=== PATIENT | male | born 1985 | race African-American/Black ===

== ENCOUNTER 2019-09-13 17:51 | Inpatient (IN) | payer OTHER ==
[2019-09-13 18:45] VITALS: BMI 25.2
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
[2019-09-13] MEDS ORDERED: MAGNESIUM CITRATE 300 ML BOTTLE PO PRN (20:28)
[2019-09-13] MEDS ORDERED: ONDANSETRON *ODT* 4 MG TABLET SL PRN (20:28)
[2019-09-13] MEDS ORDERED: ACETAMINOPHEN 325 MG TABLET (FP) PO PRN (20:28)
[2019-09-13] MEDS ORDERED: MAG HYDROX/AL HYDROX/SIMETH 30 ML UNIT-DOSE CUP PO PRN (20:28)
[2019-09-13] MEDS ORDERED: MENTHOL/PHENOL 1 EACH UD MM PRN (20:28)
[2019-09-13] MEDS ORDERED: BISMUTH SUBSALICYLATE 524 MG/30 ML UD PO PRN (20:28)
[2019-09-13] MEDS ORDERED: chlordiazePOXIDE HCL 25 MG CAPSULE PO ONE (20:36)
[2019-09-13] MEDS: THIAMINE HCL 100 MG TABLET (FP) PO SCH (21:28)
[2019-09-13] MEDS: MELATONIN 5 MG TABLETS PO PRN (21:28)
[2019-09-13] MEDS: chlordiazePOXIDE HCL 25 MG CAPSULE PO SCH (21:29)
[2019-09-14] MEDS: chlordiazePOXIDE HCL 25 MG CAPSULE PO SCH ×3 (06:37→21:37)
[2019-09-14] MEDS: PRENATAL VITAMINS W/ FOLIC ACID TABLET (FP) PO SCH (10:22)
[2019-09-14] MEDS: BACITRACIN 15 GM TUBE TOPICAL OINTMENT TP SCH (10:22)
[2019-09-14] MEDS: chlordiazePOXIDE HCL 10 MG CAPSULE PO PRN ×2 (10:24→15:18)
[2019-09-14] MEDS: METHOCARBAMOL 500 MG TABLET PO PRN (10:24)
[2019-09-14 10:36] LABS: HEMATOCRIT 42.2 % (35.4-49); HEMOGLOBIN 13.8 GM/dL (11.7-16.9); MCH 29.7 pg (25.7-33.7); MCHC 32.7 g/dl (32.0-35.9); MEAN CELL VOLUME 90.6 fl (80-96); MEAN PLT VOLUME 7.7 fl (7.5-11.1); PLATELET COUNT 297 K/MM3 (134-434); RBC 4.66 M/mm3 (4.00-5.60); RDW 15.8 % (11.9-15.9); WHITE BLOOD COUNT 3.9 K/mm3 (4.0-10.0)
--- NOTE | 2019-09-14 10:43 | EKG ---
Test Reason : Blood Pressure : / mmHG Vent. Rate : 068 BPM Atrial Rate : 068 BPM P-R Int : 172 ms QRS Dur : 086 ms QT Int : 430 ms P-R-T Axes : 071 057 037 degrees QTc Int : 457 ms SINUS RHYTHM WITH OCCASIONAL PREMATURE VENTRICULAR COMPLEXES NO PREVIOUS ECGS AVAILABLE Confirmed by ALEJANDRO MEI MD ([id number]) on 09/14/2019 10:43:26 AM Referred By: LENORA Confirmed By:ALEJANDRO MEI MD
[2019-09-14 10:48] LABS: ALBUMIN 3.5 g/dl (3.4-5.0); BILIRUBIN,TOTAL 0.8 mg/dL (0.2-1); BLOOD UREA NITROGEN 10.8 mg/dL (7-18); CALCIUM 9.1 mg/dL (8.5-10.1); CREATININE 1.1 mg/dL (0.55-1.3); POTASSIUM 3.9 mmol/L (3.5-5.1); TOT PROT 6.9 g/dl (6.4-8.2)
[2019-09-14] MEDS: IBUPROFEN 400 MG TABLET (FP) PO PRN ×2 (13:16→19:33)
--- NOTE | 2019-09-14 13:18 | PN ---
S CIWA - CIWA Score Nausea/Vomitin-Mild Nausea/No Vomiting Muscle Tremors: 3 Anxiety: 3 Agitation: 3 Paroxysmal Sweats: 3 Orientation: 0-Oriented Tacttile Disturbances: 0-None Auditory Disturbances: 0-None Visual Disturbances: 0-None Headache: 0-None Present CIWA-Ar Total Score: 13 S Progress Note (SOAP) Subjective: sweats shakes chills interrupted sleep nausea Objective: 09/14/19 13:17 Vital Signs Temperature 97.9 F 09/14/19 09:51 Pulse Rate 66 09/14/19 09:51 Respiratory Rate 18 09/14/19 09:51 Blood Pressure 119/76 09/14/19 09:51 O2 Sat by Pulse Oximetry (%) Laboratory Tests 09/14/19 09/14/19 08:00 08:00 WBC 3.9 L RBC 4.66 Hgb 13.8 Hct 42.2 MCV 90.6 MCH 29.7 MCHC 32.7 RDW 15.8 Plt Count 297 MPV 7.7 Sodium 141 Potassium 3.9 Chloride 104 Carbon Dioxide 29 Anion Gap 8 BUN 10.8 Creatinine 1.1 Est GFR (CKD-EPI)AfAm 101.69 Est GFR (CKD-EPI)NonAf 87.74 Random Glucose 86 Calcium 9.1 Total Bilirubin 0.8 AST 51 H ALT 64 H Alkaline Phosphatase 70 Total Protein 6.9 Albumin 3.5 aaox3 ambulating no acute distress labs noted Assessment: 09/14/19 13:17 withdrawals Plan: continue detox increase fluids
[2019-09-14] MEDS: hydrOXYzine PAMOATE 25 MG CAPSULE (FP) PO PRN (19:33)
[2019-09-14] MEDS: MELATONIN 5 MG TABLETS PO PRN (21:37)
[2019-09-14] MEDS: THIAMINE HCL 100 MG TABLET (FP) PO SCH (21:56)
[2019-09-15] MEDS ORDERED: chlordiazePOXIDE 5 MG CAPSULE PO SCH (05:00)
[2019-09-15] MEDS: METHOCARBAMOL 500 MG TABLET PO PRN ×3 (06:42→22:09)
[2019-09-15] MEDS: PRENATAL VITAMINS W/ FOLIC ACID TABLET (FP) PO SCH (10:30)
[2019-09-15] MEDS: chlordiazePOXIDE HCL 10 MG CAPSULE PO PRN (10:33)
[2019-09-15] MEDS: IBUPROFEN 400 MG TABLET (FP) PO PRN (10:34)
[2019-09-15] MEDS: BACITRACIN 15 GM TUBE TOPICAL OINTMENT TP SCH (10:57)
[2019-09-15] MEDS ORDERED: chlordiazePOXIDE HCL 10 MG CAPSULE PO PRN ×2 (11:31→11:32)
[2019-09-15] MEDS ORDERED: chlordiazePOXIDE HCL 10 MG CAPSULE PO ONE (11:39)
--- NOTE | 2019-09-15 11:45 | PN ---
S CIWA - CIWA Score Nausea/Vomitin Muscle Tremors: 4-Moderate,w/Arms Extend Anxiety: 5 Agitation: 5 Paroxysmal Sweats: 2 Orientation: 0-Oriented Tacttile Disturbances: 0-None Auditory Disturbances: 0-None Visual Disturbances: 0-None Headache: 2-Mild CIWA-Ar Total Score: 20 S Progress Note (SOAP) Subjective: Pt comes into detox very frequently- says he tries to stop but drinks about 1 gallon of alchol a day. his whole family drinks. O: high CIWA score alert and oriented Vital Signs - 24 hr 09/14/19 09/15/19 09/15/19 21:02 00:30 03:30 Temperature 99.1 F Pulse Rate 105 H Respiratory 18 18 16 Rate Blood Pressure 117/71 09/15/19 09/15/19 07:57 09:59 Temperature 98.1 F 97.0 F L Pulse Rate 63 63 Respiratory 16 16 Rate Blood Pressure 118/62 102/59 L Laboratory Tests 09/14/19 09/14/19 09/14/19 08:00 08:00 08:00 WBC 3.9 L RBC 4.66 Hgb 13.8 Hct 42.2 MCV 90.6 MCH 29.7 MCHC 32.7 RDW 15.8 Plt Count 297 MPV 7.7 Sodium 141 Potassium 3.9 Chloride 104 Carbon Dioxide 29 Anion Gap 8 BUN 10.8 Creatinine 1.1 Est GFR (CKD-EPI)AfAm 101.69 Est GFR (CKD-EPI)NonAf 87.74 Random Glucose 86 Calcium 9.1 Total Bilirubin 0.8 AST 51 H ALT 64 H Alkaline Phosphatase 70 Total Protein 6.9 Albumin 3.5 RPR Titer Nonreactive increased LFT's a/p: AUD: modified detox protocol: Will increase dose of taper to 15mg tomorrow , 10mg on tuesday for discharge on tuesday. Increased librium prn dosing
--- NOTE | 2019-09-15 14:36 | EKG ---
Test Reason : Blood Pressure : / mmHG Vent. Rate : 067 BPM Atrial Rate : 067 BPM P-R Int : 146 ms QRS Dur : 084 ms QT Int : 418 ms P-R-T Axes : 003 052 030 degrees QTc Int : 441 ms NORMAL SINUS RHYTHM NORMAL ECG WHEN COMPARED WITH ECG OF 14-SEP-2019 01:57, PREMATURE VENTRICULAR COMPLEXES ARE NO LONGER PRESENT Confirmed by KRISTY CAMPOS MD ([id number]) on 09/15/2019 2:36:05 PM Referred By: Confirmed By:KRISTY CAMPOS MD
[2019-09-15] MEDS: chlordiazePOXIDE 5 MG CAPSULE PO SCH ×2 (14:42→22:06)
[2019-09-15] MEDS: chlordiazePOXIDE HCL 25 MG CAPSULE PO PRN (18:58)
[2019-09-15] MEDS: THIAMINE HCL 100 MG TABLET (FP) PO SCH (22:06)
[2019-09-15] MEDS: MELATONIN 5 MG TABLETS PO PRN (22:07)
[2019-09-16] MEDS: MAGNESIUM HYDROX 2400MG/30ML ORAL SUSPENSION 30 ML CUP PO PRN ×2 (01:25→15:21)
[2019-09-16] MEDS: IBUPROFEN 400 MG TABLET (FP) PO PRN ×2 (01:25→10:32)
[2019-09-16] MEDS: chlordiazePOXIDE HCL 25 MG CAPSULE PO PRN ×5 (01:25→22:18)
[2019-09-16] MEDS ORDERED: chlordiazePOXIDE HCL 10 MG CAPSULE PO SCH ×2 (05:00)
[2019-09-16] MEDS: PRENATAL VITAMINS W/ FOLIC ACID TABLET (FP) PO SCH (10:30)
[2019-09-16] MEDS: BACITRACIN 15 GM TUBE TOPICAL OINTMENT TP SCH (10:30)
[2019-09-16] MEDS: METHOCARBAMOL 500 MG TABLET PO PRN (10:32)
--- NOTE | 2019-09-16 12:20 | PN ---
[facility] CIWA - CIWA Score Nausea/Vomitin-No Nausea/No Vomiting Muscle Tremors: None Anxiety: 3 Agitation: 1-Slight > Activity Paroxysmal Sweats: 3 Orientation: 0-Oriented Tacttile Disturbances: 0-None Auditory Disturbances: 0-None Visual Disturbances: 0-None Headache: 0-None Present CIWA-Ar Total Score: 7 BHS Progress Note (SOAP) Subjective: c/o sweats, anxiety, and headache. Objective: 09/16/19 12:17 Vital Signs 09/16/19 06:13 Temperature 97.5 F L Pulse Rate 61 Respiratory 18 Rate Blood Pressure 100/58 L Laboratory Last Values WBC 3.9 K/mm3 (4.0-10.0) L 09/14/19 08:00 RBC 4.66 M/mm3 (4.00-5.60) 09/14/19 08:00 Hgb 13.8 GM/dL (11.7-16.9) 09/14/19 08:00 Hct 42.2 % (35.4-49) 09/14/19 08:00 MCV 90.6 fl (80-96) 09/14/19 08:00 MCH 29.7 pg (25.7-33.7) 09/14/19 08:00 MCHC 32.7 g/dl (32.0-35.9) 09/14/19 08:00 RDW 15.8 % (11.9-15.9) 09/14/19 08:00 Plt Count 297 K/MM3 (134-434) 09/14/19 08:00 MPV 7.7 fl (7.5-11.1) 09/14/19 08:00 Sodium 141 mmol/L (136-145) 09/14/19 08:00 Potassium 3.9 mmol/L (3.5-5.1) 09/14/19 08:00 Chloride 104 mmol/L (98-107) 09/14/19 08:00 Carbon Dioxide 29 mmol/L (21-32) 09/14/19 08:00 Anion Gap 8 MMOL/L (8-16) 09/14/19 08:00 BUN 10.8 mg/dL (7-18) 09/14/19 08:00 Creatinine 1.1 mg/dL (0.55-1.3) 09/14/19 08:00 Est GFR (CKD-EPI)AfAm 101.69 09/14/19 08:00 Est GFR (CKD-EPI)NonAf 87.74 09/14/19 08:00 Random Glucose 86 mg/dL (74-106) 09/14/19 08:00 Calcium 9.1 mg/dL (8.5-10.1) 09/14/19 08:00 Total Bilirubin 0.8 mg/dL (0.2-1) 09/14/19 08:00 AST 51 U/L (15-37) H 09/14/19 08:00 ALT 64 U/L (13-61) H 09/14/19 08:00 Alkaline Phosphatase 70 U/L (45-117) 09/14/19 08:00 Total Protein 6.9 g/dl (6.4-8.2) 09/14/19 08:00 Albumin 3.5 g/dl (3.4-5.0) 09/14/19 08:00 RPR Titer Nonreactive (NONREACTIVE) 09/14/19 08:00 Labs noted Assessment: 09/16/19 12:18 AOX3, in no acute respiratory distress. Full ROM, ambulating in the unit. Withdrawal symptoms Plan: continue detox.
[2019-09-16] MEDS: MELATONIN 5 MG TABLETS PO PRN (22:16)
[2019-09-16] MEDS: THIAMINE HCL 100 MG TABLET (FP) PO SCH (22:16)
[2019-09-17] MEDS: hydrOXYzine PAMOATE 25 MG CAPSULE (FP) PO PRN (01:17)
[2019-09-17] MEDS: chlordiazePOXIDE HCL 25 MG CAPSULE PO PRN (02:36)
[2019-09-17] MEDS ORDERED: chlordiazePOXIDE HCL 10 MG CAPSULE PO ONE (05:00)
[2019-09-17] MEDS ORDERED: chlordiazePOXIDE HCL 10 MG CAPSULE PO SCH ×3 (05:00)
--- NOTE | 2019-09-17 09:09 | DS ---
[facility] Detox Discharge Summary Admission Date: 09/13/19 Discharge Date: 09/17/19 - History Present History: Alcohol Dependence - Physical Exam Results Vital Signs: Vital Signs Temperature 97 F L 09/17/19 05:15 Pulse Rate 65 09/17/19 05:15 Respiratory Rate 18 09/17/19 05:15 Blood Pressure 105/54 L 09/17/19 05:15 O2 Sat by Pulse Oximetry (%) Pertinent Admission Physical Exam Findings: Vital Signs Temperature 97 F L 09/17/19 05:15 Pulse Rate 65 09/17/19 05:15 Respiratory Rate 18 09/17/19 05:15 Blood Pressure 105/54 L 09/17/19 05:15 O2 Sat by Pulse Oximetry (%) Laboratory Tests 09/14/19 09/14/19 09/14/19 08:00 08:00 08:00 WBC 3.9 L RBC 4.66 Hgb 13.8 Hct 42.2 MCV 90.6 MCH 29.7 MCHC 32.7 RDW 15.8 Plt Count 297 MPV 7.7 Sodium 141 Potassium 3.9 Chloride 104 Carbon Dioxide 29 Anion Gap 8 BUN 10.8 Creatinine 1.1 Est GFR (CKD-EPI)AfAm 101.69 Est GFR (CKD-EPI)NonAf 87.74 Random Glucose 86 Calcium 9.1 Total Bilirubin 0.8 AST 51 H ALT 64 H Alkaline Phosphatase 70 Total Protein 6.9 Albumin 3.5 RPR Titer Nonreactive aaox3 ambulating no acute distress - Treatment Hospital Course: Detox Protocol Followed, Detoxed Safely, Responded well, Discharged Condition Good, Rehab Referral Accepted Patient has Accepted a Rehab Referral to: pt referred to [facility] inpatient rehab 5[facility] - Medication Discharge Medications: Ambulatory Orders NK [No Known Home Medication] 09/13/19 - Diagnosis (1) Alcohol withdrawal Current Visit: Yes Status: Chronic Qualifiers: Complication of substance-induced condition: uncomplicated Qualified Code(s ): F10.230 - Alcohol dependence with withdrawal, uncomplicated (2) Finger laceration Current Visit: Yes Status: Acute Qualifiers: Finger: index finger (3) Nicotine dependence Current Visit: Yes Status: Chronic Qualifiers: Nicotine product type: cigarettes Substance use status: uncomplicated Qualified Code(s): F17.210 - Nicotine dependence, cigarettes, uncomplicated - AMA Did Patient Leave Against Medical Advice: No
[2019-09-17 09:21] VITALS: BP 127/57; PULSE 73; TEMP 98.6
[2019-09-17] MEDS: PRENATAL VITAMINS W/ FOLIC ACID TABLET (FP) PO SCH (09:31)
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
== END 2019-09-17 10:30 | disposition home or self-care (01) | DRG 775 ==
LOC: YASAS 17:51 → Y6N 20:38
PROVIDERS: ADMIT Allergy & Immunology; ATTEND Allergy & Immunology
PROC: HZ2ZZZZ Detoxification Services for Substance Abuse Treatment (ICD-10-PCS; principal; 2019-09-13)
DX: F10.230 Alcohol dependence with withdrawal, uncomplicated (principal); F17.210 Nicotine dependence, cigarettes, uncomplicated; R94.5 Abnormal results of liver function studies; S61.211D Laceration without foreign body of left index finger without damage to nail, subsequent encounter; Y04.0XXD Assault by unarmed brawl or fight, subsequent encounter
CPT/HCPCS: 36415; 80053; 85027; 86593; 93005; 93010